=== PATIENT | female | born 1970 | race African-American/Black ===

== ENCOUNTER 2023-05-01 11:05 | Outpatient (AMB) | payer OTHER, SELFPAY ==
--- NOTE | 2023-05-01 11:07 | MHC.OFFVIS ---
Intake Vital Signs 05/01/23 11:08 Height 5 ft 3 in Weight 143 lb BMI 25.3 BP 165/85 H Blood Pressure Location Lt brachial Position Sitting Respiration 12 Pulse 106 H Pulse Source Pulse Oximeter Pulse Oximetry (%) 97 Oxygen Delivery Method Room Air Intake Visit Reasons: lumbar radiculopathy / phone # not in service Allergies Sulfa (Sulfonamide Antibiotics) Allergy (Severe, Verified 05/01/23 11:10) Angioedema Medication List - Last Reconciled 05/01/23 by Mayelin Kim LPN ibuprofen 600 mg PO TID omeprazole magnesium (Prilosec OTC) 20 mg PO DAILY paroxetine HCl 10 mg PO DAILY HPI lumbar radiculopathy / phone # not in service HPI Details 53-year-old female who presents today to the office for an evaluation of lumbar radiculopathy. She reports chronic back and left leg pain that has been going on since May 2019. Her pain started after performing stretching exercises. She has since been getting regular transforaminal injections for this pain to manage it in combination with oral ibuprofen. The injections typically provide her with 2-3 months of relief at a time. Her pain is described as an aching sensation in her back that radiates down her right lower extremity, where it is described as a pins and needles sensation associated with burning. The pain score is described as 7-8/10 in intensity. It is a constant that time tends to be better when it is rated 4/10 in intensity. She is unable to do our normal daily activities. She is a homemaker by profession. She had performed physical therapy last year. She continues to perform home exercises and stretching without much benefit. She is unable to stand, walk, sit, or cook due to pain. She reports hip pain. She has a burning sensation in her knee when sitting, kneeling, or weight-bearing that started 3 weeks ago. She has never had knee x-rays. [facility] Medical History (Updated 05/04/23 @ 11:33 by Bernard Arnold MD) Tobacco use Lumbar radiculopathy Hyperlipidemia JOSEPH (generalized anxiety disorder) Depression Review of Systems Const All systems reviewed & are unremarkable except as noted in HPI and below Physical Exam Vital Signs: Last Vital Signs Pulse 106 H 05/01/23 11:08 Resp 12 05/01/23 11:08 BP 165/85 H 05/01/23 11:08 Pulse Ox 97 05/01/23 11:08 Oxygen Delivery Method Room Air 05/01/23 11:08 BMI result Body Mass Index 25.3 General: Appears afebrile. Alert and oriented. Mood and affect appropriate. Follows and participates in conversation appropriately. Respiratory effort is unlabored. Able to transition from sit to stand unassisted. Ambulates with bilaterally normal heel strike and toe off. Results Reviewed Results Reviewed: 03/16/2023: MR LUMBAR SPINE WO CONTRAST. Assessment & Plan Assessment & Plan (1) Knee pain, bilateral: Code(s): M25.561 - Pain in right knee; M25.562 - Pain in left knee (2) Lumbar adjacent segment disease with spondylolisthesis: Code(s): M51.36 - Other intervertebral disc degeneration, lumbar region; M43.16 - Spondylolisthesis, lumbar region (3) Lumbar radiculopathy: Code(s): M54.16 - Radiculopathy, lumbar region Plan I had a long discussion with the patient about the natural course of spondylolisthesis and the potential treatment options, including continuing with ESIs and potentially requiring surgical intervention at some point in the future. The patient would like to delay surgery as much as possible. I discussed continuing the transforaminal ALBERT and potentially nerve root stimulation to avoid high-dose steroid injections at regular intervals. For now, the patient will wait till her pain returns to its baseline level, and she will call us at that point to schedule a TFESI in the future. We will consider an L5 nerve root temporary nerve stimulator placement as well and see if she gets a response to that. The patient is in agreement with this plan. ? Scribed for Dr. Arnold by Schuyler Broussard, neuropsychology medical consultant, on 05/01/2023. I, Dr. Arnold, have personally reviewed and agree with the information entered by the scribe. Orders: Orders XR knee standing BI Today M25.561 - Pain in right knee, M25.562 - Pain in left knee Coding Level of Care Code New Pt Level 4 (73638) Diagnoses Knee pain, bilateral M25.561; M25.562 Lumbar adjacent segment disease with spondylolisthesis M51.36; M43.16 Lumbar radiculopathy M54.16
[2023-05-01 11:08] VITALS: BP 165/85; PULSE 106; RESP 12; O2SAT 97; BMI 25.3
== END 2023-05-01 12:07 | disposition home or self-care (01) ==
PROVIDERS: PCP Internal Medicine; Visit Provider Internal Medicine
DX: M25.561 Pain in right knee (principal); M25.562 Pain in left knee; M51.36 Other intervertebral disc degeneration, lumbar region; M43.16 Spondylolisthesis, lumbar region; M54.16 Radiculopathy, lumbar region
CPT/HCPCS: 99204

== ENCOUNTER → 2023-05-01 11:05 | Outpatient (BNVA) | payer OTHER, SELFPAY | PROVIDERS: PCP Internal Medicine; Visit Provider Internal Medicine ==

== ENCOUNTER 2023-05-04 07:28 | Outpatient (REF) | payer OTHER, SELFPAY ==
--- NOTE | ~2023-05-04 | XR_ITS ---
EXAMINATION: XR KNEE AP STANDING CLINICAL INFORMATION: Pain in the right knee. COMPARISON: None available. TECHNIQUE: AP bilateral standing view of the knees was obtained. FINDINGS: Right knee Limited: The bone and joints are normal. Left knee Limited: Possible marginal osteophytes about the medial compartment without joint space narrowing suggestive of mild arthrosis. Lateral compartment normal. Surrounding bone and soft tissues unremarkable. XR/XR knee standing BI IMPRESSION: RIGHT KNEE LIMITED: Normal. LEFT KNEE LIMITED: Mild arthrosis.
== END 2023-05-04 07:29 | disposition home or self-care (01) ==
LOC: HO.XRAY 07:28
PROVIDERS: PCP Internal Medicine; Visit Provider Internal Medicine
DX: M25.561 Pain in right knee (principal); M25.562 Pain in left knee
CPT/HCPCS: 73565

== ENCOUNTER 2023-07-13 06:08 | Outpatient (REF) | payer OTHER, SELFPAY ==
--- NOTE | ~2023-07-13 | FL_ITS ---
CLINICAL INDICATION: Lumbar radiculopathy. FINDINGS: Technical assistance and equipment were provided by the Department of Radiology during intraoperative fluoroscopy for percutaneous injection. 6, limited fluoroscopic spot images are submitted. A radiologist was not present during the procedure. Images demonstrate the grade 2 anterolisthesis of L5 on S1, with moderate disc space narrowing at this level. The tip of a percutaneous needle projects roughly over the posterior elements at L5-S1 on the left. Contrast is injected. Tip of a percutaneous needle to project The images are available for review on PACS. TOTAL FLUOROSCOPY TIME: 0.2 minutes. DOSE AREA PRODUCT: 0.08 Gy-cm2 (dasilva-centimeter squared) FL/FL guidance in treatment room IMPRESSION: Technical assistance and equipment provided by the Department of Radiology during intraoperative fluoroscopy, as above. Please see operative report for further details.
== END 2023-07-13 06:09 | disposition home or self-care (01) ==
LOC: CF 06:08
PROVIDERS: Visit Provider Internal Medicine
DX: M54.16 Radiculopathy, lumbar region (principal)
CPT/HCPCS: 64483; J1100; J2795; Q9967

== ENCOUNTER 2023-07-13 10:01 | Outpatient (AMB) | payer OTHER, SELFPAY ==
[2023-07-13 10:02] VITALS: BP 110/60; PULSE 88; RESP 14; O2SAT 100; BMI 26.6
--- NOTE | 2023-07-13 10:02 | MHC.OFFVIS ---
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 Denies any recent cough, cold, infection, fever or other significant changes in medical history since last office visit. [facility] Medical History (Updated 05/04/23 @ 11:33 by Bernard Arnold MD) Tobacco use Lumbar radiculopathy Hyperlipidemia JOSEPH (generalized anxiety disorder) Depression Physical Exam Vital Signs: Last Vital Signs Pulse 88 07/13/23 10:02 Resp 14 07/13/23 10:02 BP 110/60 07/13/23 10:02 Pulse Ox 100 07/13/23 10:02 Oxygen Delivery Method Room Air 07/13/23 10:02 BMI result Body Mass Index 26.6 Office Procedures Details: Transforaminal epidural steroid injection, Left L5 After obtaining written consent, pre-procedure blood pressure and heart rate were stable and recorded in the nursing record. The patient was placed in the prone position on the fluoroscopy table. The lumbosacral area was prepped with chloraprep, allowed to dry and draped in sterile fashion. Using fluoroscopy, the skin overlying our target was anesthetized with 0.5% lidocaine. A 22 gauge 3.5 inch spinal needle was advanced to the safe triangle in the upper pole of the left L5 foramen. No paresthesias were elicited with needle placement and aspiration was negative for blood and CSF. Correct needle position was confirmed with approximately 1 ml contrast dye (Omnipaque 180 mg/ml) injected under real-time fluoroscopy. No evidence of vascular or intrathecal uptake was seen and there was both epidural and peripheral spread of the contrast agent. 10 mg dexamethasone plus 1 ml containing 0.5% lidocaine was slowly injected. The needle was flushed and removed. the same procedure was repeated for the remaining levels. The skin was cleansed and a sterile bandages were applied. The patient tolerated the procedure well and no complications were encountered. Following the procedure the patient's vital signs were stable. The patient was discharged home in good condition with post-procedural instructions. Time Out: Immediately prior to the procedure, the following was verbally confirmed that there is a signed consent form and that the correct patient, planned procedure, site and side are consistent with documentation and that necessary equipment and/or blood products are available prior to the start of the case. Complications: none EBL: <5 cc 05153 - Lumbar/Sacral Procedure code (CPT) selection complete Assessment & Plan Assessment & Plan (1) Lumbar radiculopathy: Code(s): M54.16 - Radiculopathy, lumbar region Plan Patient is status post left L5 TFESI. Patient tolerated procedure well and was discharged home in stable condition with discharge instructions. All questions were answered. We will follow-up via telephone or in clinic to assess response to therapy. A follow-up appointment was made during today's visit. Orders: Orders FL guidance in treatment room Today M54.16 - Radiculopathy, lumbar region Coding Level of Care Code Procedure Only Diagnoses Lumbar radiculopathy M54.16 CPT Codes Transforaminal Epidural Steroid Inj - TESI 3: 91990 - Lumbar/Sacral ([id number])
[2023-07-13 10:46] VITALS: BP 120/62; PULSE 85; RESP 14; O2SAT 100; BMI 26.6
== END 2023-07-13 11:05 | disposition home or self-care (01) ==
LOC: HO.PMCPRC 10:01
PROVIDERS: PCP Internal Medicine; Visit Provider Internal Medicine
DX: M54.16 Radiculopathy, lumbar region (principal)
CPT/HCPCS: 64483

== ENCOUNTER 2023-08-11 07:58 | Outpatient (AMB) | payer OTHER, SELFPAY ==
--- NOTE | 2023-08-11 08:02 | A.OFFVIS_ITS ---
Intake Vital Signs 08/11/23 08:03 Height 5 ft 3 in Weight 149 lb BMI 26.4 BP 143/80 H Blood Pressure Location Lt brachial Position Sitting Respiration 12 Pulse 94 Pulse Source Pulse Oximeter Pulse Oximetry (%) 98 Oxygen Delivery Method Room Air Intake Visit Reasons: s/p Left L5 TFESI Allergies Sulfa (Sulfonamide Antibiotics) Allergy (Severe, Verified 08/11/23 08:04) Angioedema Medication List - Last Reconciled 08/11/23 by Mayelin Kim LPN ibuprofen 600 mg PO TID omeprazole magnesium (Prilosec OTC) 20 mg PO DAILY paroxetine HCl 10 mg PO DAILY HPI s/p Left L5 TFESI HPI Details 53-year-old female who presents today to the office for a status post left L5 TFESI. She reports 3 days of worsening pain and headaches following the injection. This was unlike her experience with previous injections. She denies a history of allergies to iodine contrast. Her headache improved after 2 days. Overall she feels that her pain now is slightly different from what it was but continues to be significantly bothersome. Therefore she is unable to state if this injection was helpful in providing meaningful relief. She is interested in trialing a repeat injection if possible to see if she might be able to get some more relief. Past procedure: 07/13/23: Transforaminal epidural steroi d injection, Left L5: No significant relief. [facility] Medical History (Updated 05/04/23 @ 11:33 by Bernard Arnold MD) Tobacco use Lumbar radiculopathy Hyperlipidemia JOSEPH (generalized anxiety disorder) Depression Review of Systems Const All systems reviewed & are unremarkable except as noted in HPI and below Physical Exam Vital Signs: Last Vital Signs Pulse 94 08/11/23 08:03 Resp 12 08/11/23 08:03 BP 143/80 H 08/11/23 08:03 Pulse Ox 98 08/11/23 08:03 Oxygen Delivery Method Room Air 08/11/23 08:03 BMI result Body Mass Index 26.4 General: Appears afebrile. Alert and oriented. Mood and affect appropriate. Follows and participates in conversation appropriately. Respiratory effort is unlabored. Able to transition from sit to stand unassisted. Ambulates with bilaterally normal heel strike and toe off. Results Reviewed Results Reviewed: No imaging is available for review. Assessment & Plan Assessment & Plan (1) Lumbar radiculopathy: Code(s): M54.16 - Radiculopathy, lumbar region (2) Lumbar adjacent segment disease with spondylolisthesis: Code(s): M51.36 - Other intervertebral disc degeneration, lumbar region; M43.16 - Spondylolisthesis, lumbar region Plan 53-year-old female with lumbar spondylolisthesis and associated lumbar radiculopathy who unfortunately did not get much relief from her last attempted left L5 TFESI. I offered her an interlaminar lumbar epidural steroid injection at the L5-S1 level. We will schedule this in 3-4 weeks from now. If she is unable to gain any significant relief from this injection again, we may have to consider surgical referral for spondylolisthesis correction. Scribed for Dr. Arnold by Schuyler Broussard, senior medical technologist, on 08/11/2023. I, Dr. Arnold, have personally reviewed and agree with the information entered by the scribe. Coding Level of Care Code Est Pt Level 3 (78509) Diagnoses Lumbar radiculopathy M54.16 Lumbar adjacent segment disease with spondylolisthesis M51.36; M43.16
[2023-08-11 08:03] VITALS: BP 143/80; PULSE 94; RESP 12; O2SAT 98; BMI 26.4
== END 2023-08-11 08:47 | disposition home or self-care (01) ==
PROVIDERS: PCP Internal Medicine; Visit Provider Internal Medicine
DX: M54.16 Radiculopathy, lumbar region (principal); M51.36 Other intervertebral disc degeneration, lumbar region; M43.16 Spondylolisthesis, lumbar region
CPT/HCPCS: 99213

== ENCOUNTER → 2023-08-11 07:58 | Outpatient (BNVA) | payer OTHER, SELFPAY | PROVIDERS: PCP Internal Medicine; Visit Provider Internal Medicine ==